=== PATIENT | male | born 1985 | race Caucasian/White ===

== ENCOUNTER 2023-08-10 07:50 | Inpatient (IN) | payer OTHER ==
[~2023-08-10] VITALS: Ht 175.3 cm; Wt 82.3 kg
[2023-08-10 08:09] VITALS: BP 122/60; PULSE 114; RESP 20; TEMP 98; O2SAT 98
[2023-08-10] MEDS ORDERED: NACL 0.9% 1,000 ML IV ONE ×2 (08:25→09:15)
[2023-08-10] MEDS ORDERED: ONDANSETRON 4 MG/2 ML VIAL IVP ONE (09:15)
[2023-08-10] MEDS ORDERED: LOPERAMIDE 2 MG CAP PO ONE (09:15)
[2023-08-10] MEDS ORDERED: KETOROLAC 30 MG/ML VIAL IVP ONE (09:15)
[2023-08-10 09:20] LABS: BASOPHILS % (AUTO) 0.1 % (0.0-2.0); EOSINOPHILS # (AUTO) 0.2 K/uL (0-0.4); HEMATOCRIT 57.8 % (36-52); HEMOGLOBIN 19.4 g/dL (12.0-18.0); LYMPHOCYTES % (AUTO) 5.8 % (20.5-51.1); MEAN CORPUSCULAR HEMOGLOBIN 29 pg (27-31); MEAN CORPUSCULAR HGB CONC 34 g/dL (33-37); MEAN CORPUSCULAR VOLUME 86.9 fL (80-94); MONOCYTES # (AUTO) 1.3 K/uL (0.8-1.0); MONOCYTES % (AUTO) 7.4 % (1.7-9.3); NEUTROPHILS # (AUTO) 15.2 K/uL (1.8-7.7); NEUTROPHILS % (AUTO) 85.7 % (42.2-75.2); PLATELET COUNT (AUTO) 468 K/uL (140-450); RED BLOOD CELL COUNT(AUTO) 6.65 MIL/uL (4.20-6.10); RED CELL DISTRIBUTION WIDTH 14.9 % (11.6-13.7); WHITE BLOOD COUNT (AUTO) 17.7 K/uL (4.8-10.8)
[2023-08-10 09:47] LABS: ALBUMIN 4.1 g/dL (3.4-5.0); CALCIUM 9.1 mg/dL (8.5-10.1); CARBON DIOXIDE 21.4 mmol/L (21-32); CREATININE 1.1 mg/dL (0.6-1.3); POTASSIUM 3.4 mmol/L (3.5-5.1); TOTAL BILIRUBIN 0.8 mg/dL (0.0-1.0); TOTAL PROTEIN, SERUM 8.3 g/dL (6.4-8.2)
[2023-08-10] MEDS ORDERED: ACETAMINOPHEN 325 MG TAB PO PRN (13:55)
[2023-08-10] MEDS ORDERED: MAG SULF 2000 MG/WATER PREMIX 50 ML IV PRN (13:55)
[2023-08-10] MEDS ORDERED: HYDROcodone/APAP 5/325 MG 1 TAB TAB PO PRN (13:55)
[2023-08-10] MEDS ORDERED: MORPHINE SULFATE 4 MG/ML SYR IVP PRN (13:55)
[2023-08-10] MEDS ORDERED: POTASSIUM CHLORIDE 10 MEQ TABER PO PRN (13:55)
[2023-08-10] MEDS ORDERED: MAGNESIUM OXIDE 400 MG TAB PO PRN (13:55)
[2023-08-10] MEDS: NACL 0.9% 1,000 ML IV SCH (15:20)
[2023-08-10] MEDS ORDERED: cefTRIAXone 1,000 MG VIAL ONE (16:18)
[2023-08-10] MEDS ORDERED: metroNIDAZOLE 500 MG/NS PREMIX 100 ML IV ONE (16:19)
[2023-08-10 16:30] VITALS: PULSE 79; RESP 20; O2SAT 99
[2023-08-10] MEDS: ONDANSETRON 4 MG/2 ML VIAL IVP PRN ×2 (16:51→21:37)
[2023-08-10] MEDS: metroNIDAZOLE 500 MG/NS PREMIX 100 ML IV SCH (16:54)
[2023-08-10] MEDS: LOPERAMIDE 2 MG CAP PO PRN ×2 (18:30→22:39)
[2023-08-10 20:00] VITALS: BP 121/80; PULSE 100; RESP 18; TEMP 97.7; O2SAT 96
[2023-08-10] MEDS ORDERED: MELATONIN 3 MG TAB PO PRN (20:30)
[2023-08-11] MEDS: NACL 0.9% 1,000 ML IV SCH ×2 (02:09→12:49)
[2023-08-11] MEDS: LOPERAMIDE 2 MG CAP PO PRN ×3 (02:51→20:44)
[2023-08-11] MEDS: ONDANSETRON 4 MG/2 ML VIAL IVP PRN ×3 (02:52→12:46)
[2023-08-11] MEDS: metroNIDAZOLE 500 MG/NS PREMIX 100 ML IV SCH ×3 (04:11→21:29)
[2023-08-11] MEDS ORDERED: TIRZ5PEN SQ (06:20)
[2023-08-11] MEDS ORDERED: HYDR25TA32 PO (06:20)
[2023-08-11] MEDS ORDERED: LOSA-272 PO (06:20)
[2023-08-11] MEDS ORDERED: EMPA10TA PO (06:20)
[2023-08-11] MEDS ORDERED: ATOR10TA PO (06:20)
[2023-08-11 07:00] LABS: ALBUMIN 3.3 g/dL (3.4-5.0); ANION GAP 12.8 (8-16); CALCIUM 8.3 mg/dL (8.5-10.1); CARBON DIOXIDE 24.2 mmol/L (21-32); CREATININE 1.1 mg/dL (0.6-1.3); TOTAL BILIRUBIN 0.7 mg/dL (0.0-1.0); TOTAL PROTEIN, SERUM 6.6 g/dL (6.4-8.2)
[2023-08-11 07:23] LABS: BASOPHILS % (AUTO) 0.1 % (0.0-2.0); EOSINOPHILS # (AUTO) 0.6 K/uL (0-0.4); HEMATOCRIT 48.3 % (36-52); HEMOGLOBIN 16.2 g/dL (12.0-18.0); LYMPHOCYTES # (AUTO) 1.4 K/uL (2.0-11.5); LYMPHOCYTES % (AUTO) 11.3 % (20.5-51.1); MEAN CORPUSCULAR HEMOGLOBIN 29 pg (27-31); MEAN CORPUSCULAR HGB CONC 34 g/dL (33-37); MONOCYTES # (AUTO) 1.3 K/uL (0.8-1.0); NEUTROPHILS # (AUTO) 9.3 K/uL (1.8-7.7); NEUTROPHILS % (AUTO) 73.6 % (42.2-75.2); PLATELET COUNT (AUTO) 364 K/uL (140-450); RED BLOOD CELL COUNT(AUTO) 5.56 MIL/uL (4.20-6.10); RED CELL DISTRIBUTION WIDTH 14.6 % (11.6-13.7); WHITE BLOOD COUNT (AUTO) 12.6 K/uL (4.8-10.8)
[2023-08-11 08:00] VITALS: BP 108/69; PULSE 76; PULSE 97; RESP 19; TEMP 97; O2SAT 97
[2023-08-11 16:00] VITALS: BP 118/76; PULSE 79; RESP 19; TEMP 97.4; O2SAT 97
[2023-08-11 20:00] VITALS: BP 130/89; PULSE 84; PULSE 85; RESP 18; RESP 19; TEMP 97.7; O2SAT 96
[2023-08-12] MEDS: LOPERAMIDE 2 MG CAP PO PRN ×2 (03:29→11:13)
[2023-08-12] MEDS: NACL 0.9% 1,000 ML IV SCH ×2 (03:31→15:55)
[2023-08-12 04:00] VITALS: BP 116/79; PULSE 72; RESP 18; TEMP 97.8; O2SAT 96
[2023-08-12] MEDS: metroNIDAZOLE 500 MG/NS PREMIX 100 ML IV SCH ×2 (04:45→13:08)
[2023-08-12 07:23] LABS: BASOPHILS % (AUTO) 0.1 % (0.0-2.0); EOSINOPHILS # (AUTO) 0.7 K/uL (0-0.4); EOSINOPHILS % (AUTO) 7.8 % (0.0-4.0); HEMATOCRIT 41.6 % (36-52); HEMOGLOBIN 14.2 g/dL (12.0-18.0); LYMPHOCYTES # (AUTO) 1.6 K/uL (2.0-11.5); LYMPHOCYTES % (AUTO) 18.5 % (20.5-51.1); MEAN CORPUSCULAR HEMOGLOBIN 29 pg (27-31); MEAN CORPUSCULAR HGB CONC 34 g/dL (33-37); MEAN CORPUSCULAR VOLUME 86.4 fL (80-94); MONOCYTES # (AUTO) 0.8 K/uL (0.8-1.0); MONOCYTES % (AUTO) 9.8 % (1.7-9.3); NEUTROPHILS # (AUTO) 5.4 K/uL (1.8-7.7); NEUTROPHILS % (AUTO) 63.8 % (42.2-75.2); PLATELET COUNT (AUTO) 266 K/uL (140-450); RED BLOOD CELL COUNT(AUTO) 4.81 MIL/uL (4.20-6.10); RED CELL DISTRIBUTION WIDTH 14.7 % (11.6-13.7); WHITE BLOOD COUNT (AUTO) 8.5 K/uL (4.8-10.8)
[2023-08-12 07:37] LABS: ALBUMIN 2.8 g/dL (3.4-5.0); ANION GAP 10.3 (8-16); CALCIUM 7.9 mg/dL (8.5-10.1); CREATININE 0.9 mg/dL (0.6-1.3); POTASSIUM 3.3 mmol/L (3.5-5.1); TOTAL BILIRUBIN 0.5 mg/dL (0.0-1.0); TOTAL PROTEIN, SERUM 5.7 g/dL (6.4-8.2)
[2023-08-12 08:00] VITALS: BP 116/64; PULSE 73; RESP 18; TEMP 96.9; O2SAT 96
[2023-08-12] MEDS ORDERED: CEPH-588 PO (13:54)
[2023-08-12] MEDS ORDERED: METR-520 PO (13:55)
[2023-08-12 14:11] VITALS: O2SAT 98
[2023-08-12 16:00] VITALS: BP 112/68; PULSE 72; RESP 18; TEMP 97.3; O2SAT 96
== END 2023-08-12 17:30 | disposition home or self-care (01) | DRG 872 ==
LOC: MED 07:50 → MMU 13:54 → MTU 17:01
PROVIDERS: ADMIT Student in an Organized Health Care Education/Training Program; ATTEND Student in an Organized Health Care Education/Training Program
DX: A41.9 Sepsis, unspecified organism (principal); K52.9 Noninfective gastroenteritis and colitis, unspecified; E86.1 Hypovolemia; I10 Essential (primary) hypertension; E11.9 Type 2 diabetes mellitus without complications; E78.00 Pure hypercholesterolemia, unspecified; E66.9 Obesity, unspecified; Z68.26 Body mass index [BMI] 26.0-26.9, adult
CPT/HCPCS: 36415; 80053; 82948; 83690; 85025; 87040; 87070; 96374; 96375; 99285; J0696; J1644; J1885; J2405; J3490; J7060; Q9967

== ENCOUNTER 2023-09-01 14:46 | Emergency (ER) | payer OTHER ==
[~2023-09-01] VITALS: Ht 175.3 cm; Wt 103.0 kg
[~2023-09-01 14:46] MED LIST: ATOR10TA PO; CEPH-588 PO; EMPA10TA PO; HYDR25TA32 PO; LOSA-272 PO; METR-520 PO; TIRZ5PEN SQ
[2023-09-01 14:51] VITALS: BP 112/77; PULSE 112; RESP 16; TEMP 98; O2SAT 99
[2023-09-01] MEDS ORDERED: LOPE2TAB52 PO (15:24)
[2023-09-01] MEDS ORDERED: BISM262C53 PO (15:24)
== END 2023-09-01 15:35 | disposition home or self-care (01) ==
LOC: MED 14:46
DX: R19.7 Diarrhea, unspecified (principal); R10.30 Lower abdominal pain, unspecified; E11.9 Type 2 diabetes mellitus without complications; I10 Essential (primary) hypertension; Z79.4 Long term (current) use of insulin; Z79.899 Other long term (current) drug therapy
CPT/HCPCS: 99282